=== PATIENT | male | born 1990 | race Caucasian/White ===

== ENCOUNTER 2021-04-18 17:49 | Emergency (ER) | payer OTHER ==
[2021-04-18 18:16] VITALS: BP 128/76; PULSE 72; TEMP 98; BMI 28.7
[2021-04-18] MEDS ORDERED: SODIUM CHLORIDE 1,000 ML IV STA ×2 (18:42→18:44)
[2021-04-18 21:31] LABS: BASO % 0.8 % (0-2.0); HEMATOCRIT 38.5 % (35.4-49); HEMOGLOBIN 13.1 GM/dL (11.7-16.9); LYMPH % 27.6 % (8-40); MCH 30.8 pg (25.7-33.7); MEAN CELL VOLUME 90.6 fl (80-96); MEAN PLT VOLUME 7.6 fl (7.5-11.1); MONO % 6.8 % (3.8-10.2); NEUT % 62.8 % (42.8-82.8); PLATELET COUNT 252 10^3/uL (134-434); RBC 4.25 M/mm3 (4.00-5.60); RDW 12.6 % (11.9-15.9); WHITE BLOOD COUNT 8.1 K/mm3 (4.0-10.0)
[2021-04-18 21:52] LABS: CALCIUM 8.2 mg/dL (8.5-10.1)
[2021-04-18 21:53] LABS: ALBUMIN 3.8 g/dl (3.4-5.0); BLOOD UREA NITROGEN 18.8 mg/dL (7-18)
[2021-04-18 21:56] LABS: CREATININE 0.9 mg/dL (0.55-1.3)
[2021-04-18 21:57] LABS: BILIRUBIN,TOTAL 0.4 mg/dL (0.2-1)
[2021-04-18 21:58] LABS: TOT PROT 6.3 g/dl (6.4-8.2)
== END 2021-04-18 23:07 | disposition left against medical advice (07) ==
LOC: JER 17:49
PROC: 3E0337Z Introduction of Electrolytic and Water Balance Substance into Peripheral Vein, Percutaneous Approach (ICD-10-PCS; principal; 2021-04-18)
PROC: 3E0337Z Introduction of Electrolytic and Water Balance Substance into Peripheral Vein, Percutaneous Approach (ICD-10-PCS; 2021-04-18)
DX: M62.82 Rhabdomyolysis (principal)
CPT/HCPCS: 36415; 80053; 82550; 82553; 85025; 99284-25